=== PATIENT | male | born 1980 | race Caucasian/White ===

== ENCOUNTER → 2020-08-17 | Outpatient (CLI) | payer OTHER ==
--- NOTE | 2020-08-17 11:58 | REP ---
INDICATION: PAIN IN LEFT LEG/MASS COMPARISON: None TECHNIQUE: Realtime grayscale and color evaluation using linear high-frequency transducer. FINDINGS: Directed ultrasound examination at the left posterior thigh overlying palpable mass demonstrates ovoid isoechoic subcutaneous lesion measuring 1.9 x 0.5 x 1.8 cm likely lipoma. IMPRESSION: Most consistent with small subcutaneous lipoma. <Electronically signed by Levi Rollins > 08/17/20 [id number]
== END ==
LOC: M RAD 11:21
PROVIDERS: ATTEND Nurse Practitioner
DX: M79.605 Pain in left leg (principal); R22.42 Localized swelling, mass and lump, left lower limb